=== PATIENT | female | born 1975 | race Hispanic/Latino ===

== ENCOUNTER 2017-03-31 14:21 | Emergency (ER) | payer SELFPAY ==
[2017-03-31 16:06] LABS: APPEARANCE,URINE Clear (CLEAR); BILIRUBIN,URINE Negative (NEGATIVE); COLOR,URINE Yellow (YELLOW); GLUCOSE, URINE (UA) Negative (NEGATIVE); KETONES,URINE Trace mg/dL (NEGATIVE); LEUKOCYTE ESTERASE ,URINE Large (NEGATIVE); NITRATE,URINE Negative (NEGATIVE); OCCULT BLOOD,URINE Trace (NEGATIVE); PH,URINE 6.5 (5.0-8.0); PROTEIN,URINE Negative (NEGATIVE); UROBILINOGEN,URINE 0.2 mg/dL (0.2-1.0)
[2017-03-31 16:07] LABS: HCG,QUAL RESULT NEGATIVE (NEGATIVE)
[2017-03-31 16:16] LABS: RBC,URINE 0-1 /HPF (0-1)
[2017-03-31 16:17] LABS: BACTERIA,URINE Few /HPF (None Seen)
== END 2017-03-31 16:35 | disposition home or self-care (01) ==
LOC: EDH 14:21
DX: N39.0 Urinary tract infection, site not specified (principal); R05 Cough; J45.909 Unspecified asthma, uncomplicated; Z98.51 Tubal ligation status; Z98.890 Other specified postprocedural states
CPT/HCPCS: 81001; 81025